=== PATIENT | female | born 1940 | race Caucasian/White ===

== ENCOUNTER 2018-08-09 10:51 | Emergency (ER) | payer MEDICARE, OTHER ==
[2018-08-09] MEDS: HYDROCODONE/APAP (5/325) TAB PO (11:33)
[2018-08-09 12:38] LABS: TROPONIN-I < 0.012 ng/ml (0.000-0.120)
[2018-08-09] MEDS: ONDANSETRON 4 MG INJ IV (14:22)
[2018-08-09] MEDS: morphine 2 MG INJ IV (14:23)
== END 2018-08-09 16:46 | disposition home or self-care (01) ==
LOC: E/R 10:51
DX: R07.89 Other chest pain (principal); R40.2142 Coma scale, eyes open, spontaneous, at arrival to emergency department; R40.2362 Coma scale, best motor response, obeys commands, at arrival to emergency department; R40.2252 Coma scale, best verbal response, oriented, at arrival to emergency department; I10 Essential (primary) hypertension; Z79.82 Long term (current) use of aspirin
CPT/HCPCS: 36415; 71045; 84484; 93005; 96374; 96375; 99285-25